=== PATIENT | male | born 1945 | race Caucasian/White ===

== ENCOUNTER → 2019-08-23 | Outpatient (CLI) | payer OTHER ==
[~2019-08-23] MED LIST: LISI-338 PO; SIMV5TAB14 PO
[2019-08-23 11:47] VITALS: BP 134/79
== END | disposition home or self-care (01) ==
LOC: SURG 11:24
PROVIDERS: ATTEND Anesthesiology Pain Medicine
DX: M47.815 Spondylosis without myelopathy or radiculopathy, thoracolumbar region (principal); G89.4 Chronic pain syndrome; I10 Essential (primary) hypertension; E78.5 Hyperlipidemia, unspecified; Z79.899 Other long term (current) drug therapy
CPT/HCPCS: 99204